=== PATIENT | female | born 1945 | race Two or more races ===

== ENCOUNTER 2023-12-11 10:23 | Inpatient (IN) | payer MEDICARE ==
[~2023-12-11] VITALS: Ht 175.3 cm; Wt 66.0 kg
[~2023-12-11 10:23] MED LIST: MOLN200C PO
[2023-12-11 11:38] LABS: Basophils # (auto) 0.1 10 ^3/uL (0-0.2); Eosinophils # (auto) 0.1 10 ^3/uL (0-0.8); Eosinophils % (auto) 1.5 % (0.0-7.0); Hematocrit 44.4 % (36.0-46.0); Hemoglobin 14.6 g/dL (12.2-16.2); Lymphocytes # (auto) 1.7 10 ^3/uL (0.4-5.4); Lymphocytes % (auto) 27.6 % (10.0-50.0); Mean Corpuscular Hemoglobin 31.3 pg (28.0-32.0); Mean Corpuscular Hgb Conc. 32.9 g/dL (32.0-36.0); Monocytes # (auto) 0.5 10 ^3/uL (0-1.3); Monocytes % (auto) 8.4 % (0.0-12.0); Neutrophils # (auto) 3.8 10 ^3/uL (1.6-8.6); Neutrophils % (auto) 61.5 % (37.0-80.0); Nucleated Red Blood Cells % 0.1 %; Red Blood Cells 4.67 10^6/uL (4.0-5.20); Red Cell Distribution Width 13.4 % (11.8-14.3); White Blood Cell 6.1 10^3/uL (4.4-10.8)
[2023-12-11 11:48] LABS: Chloride 110 mmol/L (98-107); Potassium 3.7 mmol/L (3.5-5.1); Sodium 140 mmol/L (136-145)
[2023-12-11 11:49] LABS: Anion Gap 7 (5-15); Calcium 8.6 mg/dL (8.7-10.4); Carbon Dioxide 23 mmol/L (20-30)
[2023-12-11 11:54] LABS: BUN/Creatinine Ratio 13.1 (10.0-20.0); Blood Urea Nitrogen 14 mg/dL (9-23); Glucose 110 mg/dL (74-106)
[2023-12-11] MEDS: ONDANSETRON HCL 4 MG/2 ML VIAL IV ONE (11:54)
[2023-12-11] MEDS: MORPHINE SULFATE 4 MG/ML SYR/VIAL IV ONE (11:55)
[2023-12-11 12:00] VITALS: PULSE 60; RESP 21; O2SAT 93
[2023-12-11] MEDS ORDERED: NITROGLYCERIN 0.4 MG SL TAB SL PRN (13:00)
[2023-12-11] MEDS ORDERED: MORPHINE SULFATE INJ 2 MG/ml SYRG IV PRN (13:00)
[2023-12-11] MEDS ORDERED: CIPR500T4 PO (13:28)
[2023-12-11] MEDS ORDERED: MOLN200C PO (13:28)
[2023-12-11] MEDS ORDERED: CARV25TA55 PO (13:28)
[2023-12-11] MEDS ORDERED: LORA-1121 PO (13:28)
[2023-12-11] MEDS ORDERED: ALEN70TA74 PO (13:28)
[2023-12-11] MEDS ORDERED: AMOX500C2 PO (13:28)
[2023-12-11] MEDS ORDERED: TAMS0.4C39 PO (13:28)
[2023-12-11] MEDS ORDERED: TIMO0.2524 EACHEYE (13:28)
[2023-12-11] MEDS ORDERED: PSEU1TAB PO (13:28)
[2023-12-11] MEDS ORDERED: OMEP1CAP70 PO (13:28)
[2023-12-11] MEDS ORDERED: BUPR-60 PO (13:28)
[2023-12-11] MEDS: ASPirin 325 MG TAB PO ONE (13:29)
[2023-12-11 13:40] LABS: Triglycerides 105 mg/dL (< 150)
[2023-12-11 13:41] LABS: LDL Cholesterol 64 mg/dL (< 100)
[2023-12-11 13:42] LABS: Cholesterol 120 mg/dL (< 200); HDL Cholesterol 37 mg/dL (40-59)
[2023-12-11 15:05] VITALS: PULSE 61; RESP 18; O2SAT 96
[2023-12-11 15:31] VITALS: BP 124/67; PULSE 61; RESP 18; TEMP 98.2; O2SAT 96
[2023-12-11] MEDS ORDERED: LATA0.008 EACHEYE (15:44)
[2023-12-11] MEDS ORDERED: ATOR-47 PO (15:44)
[2023-12-11 16:28] LABS: Triglycerides 102 mg/dL (< 150)
[2023-12-11 16:29] LABS: LDL Cholesterol 67 mg/dL (< 100)
[2023-12-11 16:30] LABS: Cholesterol 124 mg/dL (< 200); HDL Cholesterol 39 mg/dL (40-59)
[2023-12-11 16:31] VITALS: BP 124/67; PULSE 61; RESP 18; TEMP 98.2; O2SAT 96
[2023-12-11] MEDS: ACETAMINOPHEN 325 MG TAB PO PRN (19:42)
[2023-12-11 20:00] VITALS: PULSE 60
[2023-12-11 21:00] VITALS: BP 118/65; PULSE 67; RESP 18; TEMP 97.4; O2SAT 96
[2023-12-11] MEDS: MORPHINE SULFATE INJ 2 MG/ml SYRG IV ONE (21:10)
[2023-12-11] MEDS: CARVEDILOL 12.5 MG TAB PO SCH (21:58)
[2023-12-11] MEDS: SODIUM CHLORIDE 0.9% 1,000 ML IV SCH (21:58)
[2023-12-11] MEDS: ATORVASTATIN 20 MG TAB PO SCH (21:59)
[2023-12-11] MEDS: ENOXAPARIN SOD 80 MG/0.8ML SYRINGE SC SCH (22:00)
[2023-12-12] VITALS (8 sets, daily range): BP systolic 100–150; BP diastolic 55–84; PULSE 58–85; RESP 18–64; TEMP 97.5–98.5; O2SAT 93–97
[2023-12-12 05:03] LABS: Urine Bacteria None Seen /hpf (None Seen)
[2023-12-12 05:09] LABS: Urine Blood Negative /uL (Negative); Urine Clarity Clear (Clear); Urine Color Yellow (Yellow); Urine Protein, UAD TRACE (Negative); Urine Specific Gravity 1.017 (1.001-1.035); Urine Urobilinogen Normal (Negative); Urine WBC 8 /hpf (0 - 5)
[2023-12-12 05:23] LABS: Amphetamine Screen, Urine Neg (NEGATIVE); Barbiturate Scree,Urine Neg (NEGATIVE); Benzodiazephine Screen, Urine Neg (NEGATIVE); Cannabinoid Screen, Urine Neg (NEGATIVE); Cocaine Screen, Urine Neg (NEGATIVE); Opiate Scree,Urine Pos (NEGATIVE); Phencyclidine Screen, Urine Neg (NEGATIVE)
[2023-12-12 06:59] LABS: Basophils # (auto) 0.1 10 ^3/uL (0-0.2); Basophils % (auto) 1.1 % (0.0-2.0); Eosinophils # (auto) 0.1 10 ^3/uL (0-0.8); Eosinophils % (auto) 2.7 % (0.0-7.0); Hematocrit 40.8 % (36.0-46.0); Hemoglobin 13.6 g/dL (12.2-16.2); Lymphocytes # (auto) 1.4 10 ^3/uL (0.4-5.4); Mean Corpuscular Hemoglobin 31.7 pg (28.0-32.0); Mean Corpuscular Hgb Conc. 33.2 g/dL (32.0-36.0); Mean Corpuscular Volume 95.5 fL (80.0-100.0); Monocytes # (auto) 0.6 10 ^3/uL (0-1.3); Neutrophils # (auto) 2.5 10 ^3/uL (1.6-8.6); Neutrophils % (auto) 53.2 % (37.0-80.0); Nucleated Red Blood Cells % 0.1 %; Red Blood Cells 4.28 10^6/uL (4.0-5.20); Red Cell Distribution Width 13.4 % (11.8-14.3); White Blood Cell 4.6 10^3/uL (4.4-10.8)
[2023-12-12 07:16] LABS: Alanine Aminotransferase 11 U/L (7-40); Albumin 3.3 g/dL (3.2-4.8); Alkaline Phosphatase 70 U/L (46-116); Anion Gap 4 (5-15); BUN/Creatinine Ratio 13.9 (10.0-20.0); Blood Urea Nitrogen 15 mg/dL (9-23); Calcium 8.5 mg/dL (8.7-10.4); Carbon Dioxide 28 mmol/L (20-30); Chloride 110 mmol/L (98-107); Glucose 102 mg/dL (74-106); Potassium 3.7 mmol/L (3.5-5.1); Sodium 142 mmol/L (136-145)
[2023-12-12 07:17] LABS: Aspartate Aminotransferase 13 U/L (13-40); Bilirubin, Total 0.4 mg/dL (0.2-1.0); Total Protein 5.1 g/dL (5.7-8.2)
[2023-12-12] MEDS: IOHEXOL 350 MG/ML 100ML IJ ONE (07:22)
[2023-12-12] MEDS ORDERED: ENOXAPARIN SOD 40 MG/0.4 ML SYRINGE SC SCH (10:00)
[2023-12-12] MEDS: ASPirin 81 mg TAB PO SCH (10:13)
[2023-12-12] MEDS: LORazepam 0.5 MG TAB PO PRN (11:21)
[2023-12-12] MEDS: LACTULOSE 20Gm/30ML SOLN PO ONE (16:55)
[2023-12-12] MEDS: ONDANSETRON HCL 4 MG/2 ML VIAL IV PRN (21:09)
[2023-12-13] VITALS (8 sets, daily range): BP systolic 98–156; BP diastolic 50–84; PULSE 16–88; RESP 15–18; TEMP 97.7–98.4; O2SAT 90–96
[2023-12-13] MEDS: buPROPion HCL 75 MG TAB PO ONE (11:49)
[2023-12-13] MEDS ORDERED: buPROPion HCL 75 MG TAB PO SCH ×2 (19:00)
[2023-12-13] MEDS: buPROPion HCL 75 MG TAB PO SCH (21:06)
[2023-12-14] VITALS (15 sets, daily range): BP systolic 99–156; BP diastolic 48–79; PULSE 60–78; RESP 12–18; TEMP 97.8–98.9; O2SAT 90–97
[2023-12-14 06:40] LABS: Chloride 113 mmol/L (98-107); Potassium 3.7 mmol/L (3.5-5.1); Sodium 144 mmol/L (136-145)
[2023-12-14 06:41] LABS: Anion Gap 7 (5-15); Calcium 8.3 mg/dL (8.7-10.4); Carbon Dioxide 24 mmol/L (20-30)
[2023-12-14 06:46] LABS: BUN/Creatinine Ratio 12.4 (10.0-20.0); Blood Urea Nitrogen 11 mg/dL (9-23); Glucose 110 mg/dL (74-106)
[2023-12-14 06:47] LABS: Basophils # (auto) 0.1 10 ^3/uL (0-0.2); Basophils % (auto) 1.2 % (0.0-2.0); Eosinophils # (auto) 0.1 10 ^3/uL (0-0.8); Eosinophils % (auto) 2.4 % (0.0-7.0); Hematocrit 40.6 % (36.0-46.0); Hemoglobin 13.6 g/dL (12.2-16.2); Lymphocytes # (auto) 1.5 10 ^3/uL (0.4-5.4); Lymphocytes % (auto) 31.8 % (10.0-50.0); Mean Corpuscular Hemoglobin 31.5 pg (28.0-32.0); Mean Corpuscular Hgb Conc. 33.5 g/dL (32.0-36.0); Mean Corpuscular Volume 94.2 fL (80.0-100.0); Monocytes # (auto) 0.4 10 ^3/uL (0-1.3); Monocytes % (auto) 7.6 % (0.0-12.0); Neutrophils # (auto) 2.7 10 ^3/uL (1.6-8.6); Nucleated Red Blood Cells % 0.1 %; Red Blood Cells 4.32 10^6/uL (4.0-5.20); Red Cell Distribution Width 13.2 % (11.8-14.3); White Blood Cell 4.8 10^3/uL (4.4-10.8)
[2023-12-14 07:04] LABS: INR 1.07 (0.9-1.15); Partial Thromboplastin Time 26.2 SEC (24.5-34.5); Prothrombin Time 11.3 sec (9.3-11.8)
[2023-12-14] MEDS: IODIXANOL 320MG/ML 100ML BTL IV ONE (10:06)
[2023-12-14] MEDS: ANGIOMAX 250 MG VIAL IV ONE (10:08)
[2023-12-14] MEDS: HEPARIN SODIUM (PORCINE) 5000 UNITS/ML 1ML VIAL ONE (10:08)
[2023-12-14] MEDS: VERAPAMIL 2.5MG/ML INJ 2ML VIAL IV ONE (10:08)
[2023-12-14] MEDS: LIDOCAINE 2%HCL (LOCAL ANESTH.) INJ 20ML MDV ONE (10:09)
[2023-12-14] MEDS: SODIUM CHL 0.9% 0 ML ONE (10:09)
[2023-12-14] MEDS: fentaNYL CITRATE 100 MCG/2 ML VL ONE (11:11)
[2023-12-14] MEDS: MIDAZOLAM HCL 2MG/2ML 2ml VIAL (1mg/ml) ONE (11:12)
[2023-12-15] VITALS (7 sets, daily range): BP systolic 112–151; BP diastolic 70–80; PULSE 60–70; RESP 16–20; TEMP 36.7; O2SAT 92–96
[2023-12-15] MEDS ORDERED: ASPI-325 PO (10:38)
== END 2023-12-15 13:30 | disposition home or self-care (01) | DRG 280 ==
LOC: EDBD 10:23 → ER 10:23 → TELE 12:49 → TELE-WESTW 15:00
PROVIDERS: ADMIT Internal Medicine; ATTEND Internal Medicine
PROC: 4A023N7 Measurement of Cardiac Sampling and Pressure, Left Heart, Percutaneous Approach (ICD-10-PCS; principal; 2023-12-14)
PROC: B211YZZ Fluoroscopy of Multiple Coronary Arteries using Other Contrast (ICD-10-PCS; 2023-12-14)
PROC: B215YZZ Fluoroscopy of Left Heart using Other Contrast (ICD-10-PCS; 2023-12-14)
DX: I21.4 Non-ST elevation (NSTEMI) myocardial infarction (principal); I50.31 Acute diastolic (congestive) heart failure; I13.0 Hypertensive heart and chronic kidney disease with heart failure and stage 1 through stage 4 chronic kidney disease, or unspecified chronic kidney disease; N18.9 Chronic kidney disease, unspecified; E78.5 Hyperlipidemia, unspecified; I25.10 Atherosclerotic heart disease of native coronary artery without angina pectoris; M81.0 Age-related osteoporosis without current pathological fracture; I27.20 Pulmonary hypertension, unspecified; Z79.899 Other long term (current) drug therapy; Z79.82 Long term (current) use of aspirin; Z86.16 Personal history of COVID-19; Z87.442 Personal history of urinary calculi; Z83.3 Family history of diabetes mellitus; Z82.49 Family history of ischemic heart disease and other diseases of the circulatory system; Z81.8 Family history of other mental and behavioral disorders; Z80.0 Family history of malignant neoplasm of digestive organs; Z90.49 Acquired absence of other specified parts of digestive tract; Z95.0 Presence of cardiac pacemaker
CPT/HCPCS: 36415; 71045; 78582; 80048; 80053; 80061; 80307; 81001; 83036; 83735; 83880; 84443; 84484; 85025; 85379; 85610; 85730; 86850; 86900; 86901; 93005; 93306; 93458; 93970; 93971; 96374; 96375; 99152; 99291; G0378; J2250; J2405; Q9967

== ENCOUNTER → 2024-02-04 | Day surgery (SDC) | payer MEDICARE ==
[2024-02-01 11:33] LABS: Basophils # (auto) 0.1 10 ^3/uL (0-0.2); Basophils % (auto) 1.5 % (0.0-2.0); Eosinophils # (auto) 0.2 10 ^3/uL (0-0.8); Eosinophils % (auto) 3.2 % (0.0-7.0); Lymphocytes # (auto) 1.8 10 ^3/uL (0.4-5.4); Lymphocytes % (auto) 25.3 % (10.0-50.0); Mean Corpuscular Hemoglobin 31.3 pg (28.0-32.0); Mean Corpuscular Hgb Conc. 33.4 g/dL (32.0-36.0); Mean Corpuscular Volume 93.5 fL (80.0-100.0); Monocytes # (auto) 0.6 10 ^3/uL (0-1.3); Monocytes % (auto) 8.2 % (0.0-12.0); Neutrophils # (auto) 4.5 10 ^3/uL (1.6-8.6); Neutrophils % (auto) 61.8 % (37.0-80.0); Nucleated Red Blood Cells % 0.2 %; Platelet Count (auto) 244 10^3/uL (140-450); Red Blood Cells 4.49 10^6/uL (4.0-5.20); Red Cell Distribution Width 14.2 % (11.8-14.3); White Blood Cell 7.3 10^3/uL (4.4-10.8)
[2024-02-01 11:55] LABS: Alanine Aminotransferase 18 U/L (7-40); Alkaline Phosphatase 81 U/L (46-116); Anion Gap 5 (5-15); Aspartate Aminotransferase 15 U/L (13-40); BUN/Creatinine Ratio 12.5 (10.0-20.0); Blood Urea Nitrogen 15 mg/dL (9-23); Calcium 9.5 mg/dL (8.7-10.4); Carbon Dioxide 28 mmol/L (20-31); Chloride 110 mmol/L (98-107); Glucose 95 mg/dL (74-106); Partial Thromboplastin Time 23.5 SEC (24.5-34.5); Potassium 4.5 mmol/L (3.5-5.1); Prothrombin Time 10.6 sec (9.3-11.8); Sodium 143 mmol/L (136-145)
[2024-02-01 11:56] LABS: Bilirubin, Total 0.3 mg/dL (0.2-1.0); Total Protein 6.2 g/dL (5.7-8.2)
[~2024-02-04] VITALS: Ht 162.6 cm; Wt 63.5 kg
[~2024-02-04] MED LIST changes: +ALEN70TA74 PO; +ASPI-325 PO; +ATOR-47 PO; +BIOT1SUB SL; +BUPR-60 PO; +CARV25TA55 PO; +LATA0.008 EACHEYE; +LORA-1121 PO; +MAGN400T40 OR; +OMEP1CAP70 PO; +PROM25TA10 PO; +SODIUM CHLORIDE LOCK 10 ML ONE; +TAMS0.4C39 PO; +TIMO0.2524 EACHEYE
[2024-02-04 13:12] VITALS: PULSE 62; RESP 12; O2SAT 100
[2024-02-04] MEDS: LIDOCAINE VISCOUS 2% 15ML UD ONE (13:17)
[2024-02-04] MEDS: diphenhdrAMINE HCL 50 MG/1 ML VL ONE (13:20)
[2024-02-04] MEDS: MIDAZOLAM HCL 5 MG/ML-1ML VIAL ONE (13:20)
[2024-02-04] MEDS: fentaNYL CITRATE 100 MCG/2 ML VL ONE (13:20)
[2024-02-04 13:35] VITALS: PULSE 60; RESP 14; TEMP 97.3; O2SAT 94
[2024-02-04 14:05] VITALS: BP 168/83; PULSE 60; RESP 16; O2SAT 96
== END | disposition home or self-care (01) ==
LOC: GI 09:18
PROVIDERS: ATTEND Internal Medicine Gastroenterology
DX: K21.9 Gastro-esophageal reflux disease without esophagitis (principal); K44.9 Diaphragmatic hernia without obstruction or gangrene; K29.50 Unspecified chronic gastritis without bleeding; K31.89 Other diseases of stomach and duodenum; F32.A Depression, unspecified; F41.9 Anxiety disorder, unspecified; I50.9 Heart failure, unspecified; Z95.0 Presence of cardiac pacemaker; Z98.890 Other specified postprocedural states; Z79.82 Long term (current) use of aspirin; Z87.442 Personal history of urinary calculi; Z82.49 Family history of ischemic heart disease and other diseases of the circulatory system
CPT/HCPCS: 36415; 43239; 80053; 85025; 85610; 85730; 88305; 88312; 88342; J1200; J2250; J3010; J7030